=== PATIENT | female | born 1950 | race Caucasian/White ===

== ENCOUNTER → 2021-07-07 | Outpatient (CLI) | payer OTHER ==
[~2021-07-07] MED LIST: GOLYTELY4000 M1 GT; MELOXICAM7.5 MG PO; METAMUCIL283 GM; PROTONIX40 M2 PO; STOOL SOFTENER1 EAC2
== END ==
LOC: RAD 09:48
PROVIDERS: ATTEND Family Medicine
DX: R05.9 Cough, unspecified (principal)